=== PATIENT | female | born 1960 | race Caucasian/White ===

== ENCOUNTER 2023-12-14 08:23 | Emergency (ER) | payer BC ==
[~2023-12-14] VITALS: Ht 154.9 cm; Wt 99.1 kg
[2023-12-14] MEDS ORDERED: VALA500T5 PO (08:38)
[2023-12-14] MEDS ORDERED: ISTA0.5S OD (08:38)
[2023-12-14] MEDS ORDERED: ECOT81TA5 PO (08:38)
[2023-12-14] MEDS ORDERED: BIMA01SOL OU (08:38)
[2023-12-14] MEDS ORDERED: PREDOPD OD (08:38)
[2023-12-14] MEDS ORDERED: ROSU10TA61 PO (08:38)
[2023-12-14] MEDS ORDERED: ALBU2.5V10 INH (08:48)
[2023-12-14] MEDS: NS 1,000 ML IV ONE (09:26)
[2023-12-14 09:41] LABS: BASO % 0.2 % (0.0-1.0); EOS % 0.2 % (0.0-3.0); HEMATOCRIT 42.6 % (36.0-47.0); HEMOGLOBIN 14.1 g/dl (12.0-15.5); LYMPH # 1.3 10^3/uL (1.5-5.0); LYMPH % 10.3 % (24.0-44.0); MEAN CORPUSCULAR HEMOGLOBIN 27.7 pg (27.0-33.0); MEAN CORPUSCULAR HGB CONC 33.1 g/dl (32.0-36.5); MEAN CORPUSCULAR VOLUME 83.7 fl (80.0-96.0); MONO # 0.6 10^3/uL (0.0-0.8); MONO % 4.6 % (2.0-8.0); NEUTROPHILS # 10.6 10^3/uL (1.5-8.5); NEUTROPHILS % 84.3 % (36.0-66.0); PLATELET COUNT, AUTOMATED 173 10^3/uL (150-450); RED BLOOD COUNT 5.09 10^6/uL (4.00-5.40); WHITE BLOOD COUNT 12.5 10^3/uL (4.0-10.0)
[2023-12-14 10:08] LABS: LIPASE 25 U/L (12-53)
[2023-12-14 10:11] LABS: ALBUMIN 3.8 G/DL (3.2-5.2); ALKALINE PHOSPHATASE 78 U/L (46-116); ALT/SGPT 29 U/L (7.0-40); AST/SGOT 20 U/L (<34); BILIRUBIN,DIRECT 0.2 MG/DL (<0.4); BILIRUBIN,TOTAL 0.5 MG/DL (0.3-1.2); BLOOD UREA NITROGEN 25 MG/DL (9-23); CALCIUM LEVEL 9.5 MG/DL (8.3-10.6); CARBON DIOXIDE LEVEL 27 MMOL/L (20-31); CHLORIDE LEVEL 107 MMOL/L (98-107); CREATININE FOR GFR 0.74 MG/DL (0.55-1.30); GLOMERULAR FILTRATION RATE > 60.0 (>45); GLUCOSE, FASTING 127 MG/DL (74-106); POTASSIUM SERUM 4.2 MMOL/L (3.5-5.1); SODIUM LEVEL 140 MMOL/L (136-145); TOTAL PROTEIN 6.5 G/DL (5.7-8.2)
[2023-12-14] MEDS: KETOROLAC 30 MG/ML 1ML VIAL IV ONE (10:39)
[2023-12-14] MEDS ORDERED: ONDA-282 PO (11:25)
[2023-12-14] MEDS ORDERED: FLOM0.4C39 PO (11:25)
[2023-12-14] MEDS ORDERED: PERC5TAB12 PO (11:25)
[2023-12-14 11:45] VITALS: BP 155/60; O2SAT 93
[2023-12-14 11:54] VITALS: TEMP 99
== END 2023-12-14 11:55 | disposition home or self-care (01) ==
LOC: EDBD 08:23 → M ED 08:23
DX: N20.1 Calculus of ureter (principal); E78.5 Hyperlipidemia, unspecified; Z79.51 Long term (current) use of inhaled steroids; Z79.1 Long term (current) use of non-steroidal anti-inflammatories (NSAID); Z79.52 Long term (current) use of systemic steroids; Z79.899 Other long term (current) drug therapy
CPT/HCPCS: 74176; 80048; 80076; 81001; 83605; 83690; 85025; 93041; 96361; 96374; 99284; J1885